=== PATIENT | male | born 1975 | race Caucasian/White ===

== ENCOUNTER 2024-06-05 07:02 | Outpatient (CLI) | payer BC, OTHER ==
[2024-06-05] VITALS (21 sets, daily range): BP systolic 127–141; BP diastolic 73–95; PULSE 54–71
== END 2024-06-05 23:59 | disposition home or self-care (01) ==
LOC: CARD DIAG 07:02
PROVIDERS: ATTEND Internal Medicine Interventional Cardiology
DX: R55 Syncope and collapse (principal)
CPT/HCPCS: 93660